=== PATIENT | female | born 1985 | race Caucasian/White ===

== ENCOUNTER 2024-02-08 13:00 | Inpatient (IN) ==
[2024-02-08 14:08] LABS: Urine Appearance Clear; Urine Bilirubin Negative (Negative); Urine Blood Negative (Negative); Urine Color Light-Yellow; Urine Glucose Negative (Negative); Urine Ketones Negative (Negative); Urine Nitrite Negative (Negative); Urine Protein Negative (Negative); Urine Urobilinogen Negative (Negative)
[2024-02-08 14:19] LABS: Hematocrit 37.6 % (35-45); Hemoglobin 12.7 g/dL (11.5-14.3); Mean Corpuscular Hemoglobin 30.2 pg (27-33); Mean Corpuscular Hgb Conc 33.9 g/dL (31-36); Mean Corpuscular Volume 89.2 fL (80-97); Red Blood Count 4.21 10^6/uL (3.63-4.92); Red Cell Distribution Width 14.3 % (12-17); White Blood Count 11.5 10^3/uL (3.8-11.8)
[2024-02-08 14:45] LABS: ABS Monocytes 0.7 10^3/uL (0.0-0.9); ABS Neutrophils 8.7 10^3/uL (1.5-7.6); Eosinophil % 0.3 %; Lymphocyte % 17.4 %; Platelet Count Platelets clumped. 10^3/uL (150-450)
[2024-02-08 15:14] LABS: Urine Creatinine Concentration 52.26 mg/dL (20.00-320.00); Urine TP Creat Ratio 0.19 mg/mg
[2024-02-08 15:51] LABS: Albumin 3.6 g/dL (3.2-5.2); Albumin/Globulin Ratio 1.8 (1-3); Calcium 9.2 mg/dL (8.6-10.3); Creatinine, Serum 0.52 mg/dL (0.51-0.95); Potassium 4.2 mmol/L (3.5-5.0); Total Bilirubin 0.5 mg/dL (0.2-1.0); Total Protein 5.6 g/dL (6.4-8.9); eGFR CKD-EPI 121.1 (>60)
[2024-02-08] MEDS ORDERED: Nalbuphine 10 MG/ML 1 ML VIAL IV PRN (16:37)
[2024-02-08] MEDS ORDERED: Prochlorperazine 5 mg/ml 2 ml VIAL (10 mg) IV PRN ×2 (16:37→23:45)
[2024-02-08] MEDS ORDERED: Lidocaine 1% VIAL 10 MG/ML 30 ML VIAL INJ PRN (16:37)
[2024-02-08] MEDS: miSOPROStol 100 mcg TAB PO ONE (17:25)
[2024-02-08 18:16] LABS: Mean Platelet Volume 9.7 fL (7.5-11.2); Platelet Count 156 10^3/uL (150-450)
[2024-02-08 19:09] LABS: Urine Benzodiazepine Screen None Detected (None Detect); Urine Cannabinoids Screen None Detected (None Detect); Urine Opiates Screen None Detected (None Detect)
[2024-02-08] MEDS: Dinoprostone 10 MG VAG.SUPP VAGINAL ONE (23:21)
[2024-02-09] MEDS: miSOPROStol 100 mcg TAB ONE (13:35)
[2024-02-09] MEDS: Dinoprostone 10 MG VAG.SUPP VAGINAL ONE (18:42)
[2024-02-10] MEDS: miSOPROStol 100 mcg TAB VAGINAL ONE ×3 (09:42→18:08)
[2024-02-10] MEDS: Lidocaine 2% JELLY 6 ML Topical TOPICAL ONE ×2 (18:00→23:16)
[2024-02-10] MEDS: Buffered Lidocaine 1% SYRIN 1 ml INTRADERM ONE (19:11)
[2024-02-11] MEDS: Lidocaine 2% JELLY 6 ML Topical TOPICAL ONE ×4 (00:33→20:19)
[2024-02-11] MEDS: miSOPROStol 100 mcg TAB PO ONE (05:26)
[2024-02-11] MEDS: miSOPROStol 100 mcg TAB VAGINAL ONE (08:44)
[2024-02-11] MEDS: Lactated Ringers 1000 ml BAG 1,000 ML IV SCH (13:48)
[2024-02-11] MEDS: Oxytocin in LR 20,000 MILLI.UNIT/1,000 ML BAG IV SCH (13:51)
[2024-02-11 14:44] LABS: ABS Lymphocytes 1.9 10^3/uL (1.0-4.8); ABS Monocytes 0.8 10^3/uL (0.0-0.9); ABS Neutrophils 8.3 10^3/uL (1.5-7.6); ABS Nucleated RBC 0.01 10^3/ul; Eosinophil % 0.4 %; Hematocrit 38.7 % (35-45); Hemoglobin 13.2 g/dL (11.5-14.3); Lymphocyte % 16.9 %; Mean Corpuscular Hemoglobin 30.3 pg (27-33); Mean Corpuscular Hgb Conc 34.2 g/dL (31-36); Mean Corpuscular Volume 88.7 fL (80-97); Mean Platelet Volume 10.1 fL (7.5-11.2); Nucleated Red Blood Cells % 0.1 %/100WBC (0.0-0.8); Platelet Count 165 10^3/uL (150-450); Red Blood Count 4.36 10^6/uL (3.63-4.92); Red Cell Distribution Width 14.2 % (12-17)
[2024-02-11 15:12] LABS: Albumin 3.7 g/dL (3.2-5.2); Albumin/Globulin Ratio 1.6 (1-3); Calcium 9.2 mg/dL (8.6-10.3); Creatinine, Serum 0.58 mg/dL (0.51-0.95); Globulin 2.3 g/dL (2-4); Potassium 4.2 mmol/L (3.5-5.0); Total Bilirubin 0.4 mg/dL (0.2-1.0); Uric Acid 6.4 mg/dL (2.3-6.6)
[2024-02-11 15:29] LABS: Urine Creatinine Concentration 112.58 mg/dL (20.00-320.00); Urine TP Creat Ratio 0.16 mg/mg
[2024-02-11] MEDS: miSOPROStol 100 mcg TAB PO SCH (22:30)
[2024-02-12] MEDS: Lidocaine 2% JELLY 6 ML Topical TOPICAL ONE ×2 (07:25→19:46)
[2024-02-12] MEDS: Lactated Ringers 1000 ml BAG 1,000 ML IV ONE ×2 (12:56→13:26)
[2024-02-12] MEDS ORDERED: Phenylephrine 40 mcg/mL 10mL (400mcg) SYRINGE IV PUSH PRN (13:13)
[2024-02-12] MEDS: Phenylephrine 40 mcg/mL 10mL (400mcg) SYRINGE IV PUSH PRN (13:29)
[2024-02-12] MEDS: Sodium Citrate/Citric Acid LIQ 15 ML UDC PO PRN (13:45)
[2024-02-12] MEDS ORDERED: Morphine PF AMP (0.5MG/ML) 5 MG/10 ML AMP ONE (14:07)
[2024-02-12] MEDS ORDERED: fentaNYL 100 mcg/2 ml 50 MCG/ML VIAL ONE (14:07)
[2024-02-12] MEDS ORDERED: Phenylephrine 40 mcg/mL 10mL (400mcg) SYRINGE ONE (14:20)
[2024-02-12] MEDS ORDERED: Ondansetron 4 mg VIAL 2 MG/ML 2 ml VIAL IV PRN (14:40)
[2024-02-12] MEDS ORDERED: Acetaminophen IV 1 GM/100ML 1,000 MG/100 ML BAG IV PRN (14:40)
[2024-02-12] MEDS ORDERED: Naloxone 0.4 mg VIAL 0.4 mg/ml 1 ml VIAL IV PUSH PRN (14:40)
[2024-02-12] MEDS ORDERED: Metoclopramide 5 MG/ML VIAL (10 mg) IV PRN (14:40)
[2024-02-12 14:42] LABS: Urine Appearance Clear; Urine Bilirubin Negative (Negative); Urine Blood Negative (Negative); Urine Color Yellow; Urine Glucose Negative (Negative); Urine Ketones Trace (Negative); Urine Nitrite Negative (Negative); Urine Protein Trace (Negative); Urine Specific Gravity 1.017 (1.002-1.030); Urine Urobilinogen Negative (Negative); Urine pH 6.5 (5.0-8.0)
[2024-02-12] MEDS ORDERED: Glycerin ADULT 2.4 gm SUPP PR PRN (15:27)
[2024-02-12] MEDS ORDERED: Witch Hazel PAD JAR TOPICAL PRN (15:27)
[2024-02-12] MEDS ORDERED: Dibucaine 1% OINT 28.35 GM TUBE PR PRN (15:27)
[2024-02-12] MEDS ORDERED: Lactated Ringers 1000 ml BAG 1,000 ML IV SCH (16:00)
[2024-02-12] MEDS: ceFOXitin 2 GM IVPREMIX 2 GM/50 ML BAG ONE (16:47)
[2024-02-12] MEDS: ceFOXitin 2 GM IVPREMIX 2 GM/50 ML BAG IVPB ONE (16:51)
[2024-02-12] MEDS: Oxytocin in LR 20,000 MILLI.UNIT/1,000 ML BAG IV SCH (19:45)
[2024-02-12] MEDS: Lactated Ringers 1000 ml BAG 1,000 ML IV SCH (19:46)
[2024-02-12] MEDS: OBEPIDURAL (200 ML) 200 ML EPIDURAL SCH (19:46)
[2024-02-12] MEDS: OBEPIDURAL (200 ML) 0 ML EPIDURAL ONE (19:46)
[2024-02-12] MEDS: Lidocaine 1.5% EPI 1:200,000 30 ML SDV ONE (19:46)
[2024-02-12] MEDS: Lidocaine 2% w/ EPI 1:200,000 MPF 20 ML SDV VIAL ONE (19:46)
[2024-02-13 06:50] LABS: ABS Lymphocytes 1.8 10^3/uL (1.0-4.8); ABS Monocytes 0.9 10^3/uL (0.0-0.9); ABS Neutrophils 10.1 10^3/uL (1.5-7.6); Eosinophil % 0.1 %; Hematocrit 33.9 % (35-45); Hemoglobin 11.7 g/dL (11.5-14.3); Mean Corpuscular Hemoglobin 30.6 pg (27-33); Mean Corpuscular Hgb Conc 34.5 g/dL (31-36); Mean Corpuscular Volume 88.5 fL (80-97); Mean Platelet Volume 9.7 fL (7.5-11.2); Platelet Count 134 10^3/uL (150-450); Red Blood Count 3.83 10^6/uL (3.63-4.92); Red Cell Distribution Width 14.2 % (12-17); White Blood Count 12.8 10^3/uL (3.8-11.8)
[2024-02-13] MEDS: Enoxaparin 40 MG/0.4 ML SYR SUBCUT SCH (09:03)
[2024-02-15 08:12] VITALS: BP 146/93
== END 2024-02-15 13:30 | disposition home or self-care (01) | DRG 788 ==
LOC: MCHOBOUT 13:00 → MCHOB 15:09
PROVIDERS: ADMIT Advanced Practice Midwife; ATTEND Obstetrics & Gynecology